=== PATIENT | female | born 1970 | race Two or more races ===

== ENCOUNTER 2018-08-01 12:35 | Emergency (ER) | payer MEDICAID ==
[~2018-08-01] VITALS: Ht 152.4 cm; Wt 44.9 kg
[2018-08-01 12:40] VITALS: Ht 152.4 cm; Wt 44.9 kg
[2018-08-01 13:17] VITALS: BP 128/90
== END 2018-08-01 13:18 | disposition home or self-care (01) ==
LOC: ED 12:35
DX: M06.842 Other specified rheumatoid arthritis, left hand (principal); M06.841 Other specified rheumatoid arthritis, right hand; M06.872 Other specified rheumatoid arthritis, left ankle and foot; M06.871 Other specified rheumatoid arthritis, right ankle and foot; Z88.0 Allergy status to penicillin; Z88.8 Allergy status to other drugs, medicaments and biological substances; Z98.890 Other specified postprocedural states

== ENCOUNTER 2019-02-26 15:49 | Emergency (ER) | payer MEDICAID ==
[~2019-02-26] VITALS: Ht 152.4 cm; Wt 42.6 kg
[2019-02-26 15:57] VITALS: Ht 152.4 cm; Wt 42.6 kg
[2019-02-26 21:27] VITALS: BP 124/86
== END 2019-02-26 21:27 | disposition home or self-care (01) ==
LOC: ED 15:49
DX: S60.453A Superficial foreign body of left middle finger, initial encounter (principal); F17.210 Nicotine dependence, cigarettes, uncomplicated; M06.9 Rheumatoid arthritis, unspecified; Z98.890 Other specified postprocedural states; Z88.0 Allergy status to penicillin; Z88.8 Allergy status to other drugs, medicaments and biological substances; W45.8XXA Other foreign body or object entering through skin, initial encounter; Y93.89 Activity, other specified; Y92.89 Other specified places as the place of occurrence of the external cause; Y99.8 Other external cause status
CPT/HCPCS: 90715; 99406; J1885; J2001; J2270; J3010; Q0092; Q0162

== ENCOUNTER 2020-01-15 12:13 | Emergency (ER) | payer OTHER ==
[~2020-01-15] VITALS: Ht 152.4 cm; Wt 45.4 kg
[2020-01-15 12:28] VITALS: Ht 152.4 cm; Wt 45.4 kg
[2020-01-15 15:00] VITALS: BP 132/84
== END 2020-01-15 15:00 | disposition home or self-care (01) ==
LOC: ED 12:13
DX: S82.001A Unspecified fracture of right patella, initial encounter for closed fracture (principal); W01.0XXA Fall on same level from slipping, tripping and stumbling without subsequent striking against object, initial encounter; Y93.89 Activity, other specified; Y92.89 Other specified places as the place of occurrence of the external cause; Y99.8 Other external cause status; Z88.0 Allergy status to penicillin; M06.9 Rheumatoid arthritis, unspecified
CPT/HCPCS: J1885; Q0092